=== PATIENT | male | born 1935 | race Caucasian/White ===

== ENCOUNTER 2024-01-30 10:56 | Inpatient (IN) | payer MEDICARE, OTHER ==
[~2024-01-30 10:56] MED LIST: Iopamidol 300 61% 100 ML VIAL FS ONE
[2024-01-30 12:42] LABS: #Basophils 0.03 10x3/uL (0.0-0.2); #Eosinphils 0.41 10x3/uL (0.0-0.5); #Monocytes 0.69 10x3/uL (0.0-1.1); #Neutrophils 3.86 10x3/uL (1.5-8.4); %Basophils 0.5 % (0.0-2.0); %Eosinophils 6.3 % (0.0-6.0); %Lymphocytes 22.4 % (18.0-47.0); %Monocytes 10.7 % (0.0-10.0); %Neutrophils 59.8 % (40.0-75.0); Hematocrit 41.3 % (38.8-50.0); Hemoglobin 13.1 g/dL (13.5-17.5); Mean Corpuscular HGB CONC 31.7 g/dL (32.0-36.0); Mean Corpuscular Hemoglobin 30.1 pg (27.0-33.0); Mean Corpuscular Volume 94.9 fL (81.2-95.1); Mean Platelet Volume 9.7 fL (7.4-10.4); Platelet Count 219 10x3/uL (150-450); RBC Distribution Width 13.2 % (11.5-14.5); Red Blood Cell (RBC) Count 4.35 10x6/uL (4.32-5.72); White Blood Cell (WBC) Count 6.5 10x3/uL (3.5-10.5)
[2024-01-30 12:53] LABS: PTT 34.7 sec (22.0-33.0); Prothrombin Time 10.7 sec (9.5-12.1)
[2024-01-30 12:58] LABS: Anion Gap 13 mmol/L (10-20); BUN (Urea Nitrogen) 10 mg/dL (8.4-25.7); Calc. Creatinine Clearance 71 mL/min (70-130); Carbon Dioxide 26 mmol/L (23-31); Chloride 103 mmol/L (98-107); Estimated GFR 85; Glucose 90 mg/dL (83-110); Magnesium 2.1 mg/dL (1.6-2.6); Potassium 4.1 mmol/L (3.5-5.1); Sodium 138 mmol/L (136-145)
[2024-01-30] MEDS ORDERED: Heparin 10,000 UNITS/ 10 ML VIAL ONE (13:33)
[2024-01-30] MEDS ORDERED: Nitroglycerin 50 MG/250 ML BOT 250 ML ONE (13:33)
[2024-01-30] MEDS ORDERED: Lidocaine 1% (PF) 30 ML VIAL ONE (13:33)
[2024-01-30] MEDS ORDERED: Verapamil 5 MG/2 ML VIAL ONE (13:33)
[2024-01-30] MEDS ORDERED: Atropine Sulfate 1 mg/1 ml Vial ONE (14:39)
[2024-01-30] MEDS ORDERED: PHENYLEPHRINE-NS 100 MCG/ML 10 ML SYRINGE ONE (14:39)
[2024-01-30] MEDS ORDERED: Adenosine 6 mg (2 mL) VIAL ONE (14:52)
[2024-01-30] MEDS ORDERED: Morphine 4 MG/ML VIAL ONE (14:58)
[2024-01-30] MEDS ORDERED: Ondansetron PF 4 MG/2 ML Vial ONE (15:03)
[2024-01-30] MEDS ORDERED: Clopidogrel Bisulfate 300 MG TAB ONE (15:35)
[2024-01-30] MEDS ORDERED: Morphine 2 MG/ML VIAL SLOW IVP PRN (16:01)
[2024-01-30] MEDS ORDERED: Nitroglycerin 2% Ointment 1 INCH/1 GM Packet ONE (16:15)
[2024-01-30] MEDS ORDERED: Nitroglycerin 0.4 MG TAB (25 Tab Bottle) ONE (16:40)
[2024-01-30] MEDS: Nitroglycerin 0.4 MG TAB (25 Tab Bottle) SL PRN (20:42)
[2024-01-30] MEDS: Atorvastatin Calcium 40 MG TAB PO SCH (20:51)
[2024-01-30] MEDS: traZODone HCl 50 MG TAB PO SCH (20:52)
[2024-01-30] MEDS: Melatonin 3 MG TAB PO SCH (20:52)
[2024-01-30] MEDS ORDERED: Atorvastatin Calcium 40 MG TAB PO SCH ×2 (21:00)
[2024-01-30] MEDS: Sodium Chloride 0.9% 1,000 ML IV SCH (21:09)
[2024-01-31 04:03] LABS: #Basophils 0.03 10x3/uL (0.0-0.2); #Eosinphils 0.21 10x3/uL (0.0-0.5); #Monocytes 0.83 10x3/uL (0.0-1.1); %Basophils 0.5 % (0.0-2.0); %Eosinophils 3.2 % (0.0-6.0); %Monocytes 12.5 % (0.0-10.0); %Neutrophils 64.6 % (40.0-75.0); Hematocrit 36.8 % (38.8-50.0); Hemoglobin 11.8 g/dL (13.5-17.5); Mean Corpuscular HGB CONC 32.1 g/dL (32.0-36.0); Mean Corpuscular Hemoglobin 30.3 pg (27.0-33.0); Mean Corpuscular Volume 94.4 fL (81.2-95.1); Mean Platelet Volume 9.9 fL (7.4-10.4); Platelet Count 196 10x3/uL (150-450); RBC Distribution Width 13.2 % (11.5-14.5); White Blood Cell (WBC) Count 6.6 10x3/uL (3.5-10.5)
[2024-01-31 04:14] LABS: ALT (SGPT) 47 U/L (8-55); AST (SGOT) 152 U/L (5-34); Albumin 2.8 g/dL (3.4-4.8); Alkaline Phosphatase 159 U/L (40-110); Anion Gap 13 mmol/L (10-20); BUN (Urea Nitrogen) 10 mg/dL (8.4-25.7); Bilirubin, Total 0.8 mg/dL (0.2-1.2); Calc. Creatinine Clearance 75 mL/min (70-130); Carbon Dioxide 22 mmol/L (23-31); Chloride 108 mmol/L (98-107); Estimated GFR 86; Globulin 2.5 g/dL (2.4-3.5); Glucose 92 mg/dL (83-110); Potassium 3.7 mmol/L (3.5-5.1); Protein, Total 5.3 g/dL (5.8-8.1); Sodium 139 mmol/L (136-145)
[2024-01-31] MEDS: Acetaminophen 325 MG TAB PO PRN (04:16)
[2024-01-31] MEDS: Ondansetron PF 4 MG/2 ML Vial IVP PRN (09:00)
[2024-01-31] MEDS ORDERED: VITAMIN E MIXED 1000 UNIT PO SCH (09:00)
[2024-01-31] MEDS: Clopidogrel Bisulfate 75 MG TAB PO SCH (09:56)
[2024-01-31] MEDS: Aspirin Chewable 81 MG TAB PO SCH ×2 (09:56→09:58)
[2024-01-31] MEDS: Allopurinol 100 MG TAB PO SCH (09:56)
[2024-01-31] MEDS: Losartan 25 MG TAB PO SCH (09:57)
[2024-01-31] MEDS: Multivitamin W/ Minerals 1 TAB PO SCH (09:57)
[2024-01-31] MEDS: Cholecalciferol 1,000 UNITS (25 MCG) TAB PO SCH (09:57)
[2024-01-31] MEDS: Potassium Chloride 20 MEQ TAB PO SCH ×2 (11:09→15:09)
[2024-01-31] MEDS: Pepto Bismol Chew TAB PO SCH (12:25)
[2024-01-31] MEDS: Nitroglycerin 2% Ointment 1 INCH/1 GM Packet TOP SCH ×2 (13:22→21:35)
[2024-01-31] MEDS ORDERED: Nitroglycerin 2% Ointment 1 INCH/1 GM Packet TOP SCH (21:00)
[2024-01-31] MEDS: Enoxaparin 30 MG (0.3 mL) SYRINGE SC SCH (21:40)
[2024-02-01] MEDS ORDERED: UDCUP PO SCH (08:15)
[2024-02-01] MEDS ORDERED: BISMUTH SUBSALICYLATE 524 MG/30 ML PO SCH (08:15)
[2024-02-01] MEDS: Pepto Bismol Chew TAB PO SCH (09:16)
[2024-02-01] MEDS: Famotidine 20 MG TAB PO SCH ×2 (10:45→21:27)
[2024-02-01] MEDS: Isosorbide Mononitrate 30 MG ER.TAB PO SCH (10:46)
[2024-02-01 11:01] LABS: Hematocrit 39.5 % (38.8-50.0); Hemoglobin 12.7 g/dL (13.5-17.5); Mean Corpuscular HGB CONC 32.2 g/dL (32.0-36.0); Mean Corpuscular Hemoglobin 30.5 pg (27.0-33.0); Mean Corpuscular Volume 94.7 fL (81.2-95.1); Mean Platelet Volume 9.8 fL (7.4-10.4); Platelet Count 217 10x3/uL (150-450); RBC Distribution Width 13.2 % (11.5-14.5); Red Blood Cell (RBC) Count 4.17 10x6/uL (4.32-5.72); White Blood Cell (WBC) Count 8.2 10x3/uL (3.5-10.5)
[2024-02-01 11:13] LABS: Anion Gap 12 mmol/L (10-20); BUN (Urea Nitrogen) 9 mg/dL (8.4-25.7); Calc. Creatinine Clearance 74 mL/min (70-130); Calcium 9.2 mg/dL (7.8-10.44); Carbon Dioxide 24 mmol/L (23-31); Chloride 106 mmol/L (98-107); Estimated GFR 86; Glucose 125 mg/dL (83-110); Potassium 4.4 mmol/L (3.5-5.1); Sodium 138 mmol/L (136-145)
[2024-02-01 14:02] LABS: ALT (SGPT) 43 U/L (8-55); AST (SGOT) 130 U/L (5-34); Alkaline Phosphatase 152 U/L (40-110); Bilirubin, Direct 0.4 mg/dL (0.1-0.3); Bilirubin, Total 0.9 mg/dL (0.2-1.2); Protein, Total 5.9 g/dL (5.8-8.1)
[2024-02-02 04:21] LABS: ALT (SGPT) 36 U/L (8-55); AST (SGOT) 85 U/L (5-34); Albumin 2.7 g/dL (3.4-4.8); Alkaline Phosphatase 140 U/L (40-110); Anion Gap 13 mmol/L (10-20); BUN (Urea Nitrogen) 11 mg/dL (8.4-25.7); Bilirubin, Total 0.8 mg/dL (0.2-1.2); Calc. Creatinine Clearance 75 mL/min (70-130); Calcium 8.7 mg/dL (7.8-10.44); Carbon Dioxide 22 mmol/L (23-31); Chloride 106 mmol/L (98-107); Estimated GFR 86; Globulin 2.9 g/dL (2.4-3.5); Glucose 86 mg/dL (83-110); Potassium 3.8 mmol/L (3.5-5.1); Protein, Total 5.6 g/dL (5.8-8.1); Sodium 137 mmol/L (136-145)
[2024-02-02] MEDS: Isosorbide Mononitrate 30 MG ER.TAB PO SCH (11:31)
[2024-02-02] MEDS: Potassium Chloride 20 MEQ TAB PO SCH (12:00)
[2024-02-03] MEDS: Metoprolol Tartrate 5 MG (5 mL) VIAL IVP SCH (02:57)
[2024-02-03] MEDS: Amiodarone 150 MG in Dextrose 5% in Water 100 ML IVPB SCH (03:33)
[2024-02-03] MEDS: Amiodarone In Dextrose 360 MG in Premix 1 BAG IVPB SCH (03:54)
[2024-02-03 04:23] LABS: ALT (SGPT) 43 U/L (8-55); AST (SGOT) 71 U/L (5-34); Albumin 2.8 g/dL (3.4-4.8); Alkaline Phosphatase 189 U/L (40-110); Bilirubin, Direct 0.4 mg/dL (0.1-0.3); Bilirubin, Total 0.8 mg/dL (0.2-1.2); Protein, Total 6.1 g/dL (5.8-8.1)
[2024-02-03 04:24] LABS: ALT (SGPT) 46 U/L (8-55); AST (SGOT) 76 U/L (5-34); Alkaline Phosphatase 203 U/L (40-110); Anion Gap 15 mmol/L (10-20); BUN (Urea Nitrogen) 12 mg/dL (8.4-25.7); Bilirubin, Total 0.9 mg/dL (0.2-1.2); Calc. Creatinine Clearance 72 mL/min (70-130); Calcium 9.3 mg/dL (7.8-10.44); Carbon Dioxide 21 mmol/L (23-31); Chloride 104 mmol/L (98-107); Estimated GFR 85; Globulin 3.6 g/dL (2.4-3.5); Glucose 135 mg/dL (83-110); Potassium 3.8 mmol/L (3.5-5.1); Protein, Total 6.6 g/dL (5.8-8.1); Sodium 136 mmol/L (136-145)
[2024-02-03] MEDS: Amiodarone 200 MG TAB PO SCH ×2 (10:57→22:20)
[2024-02-04] MEDS ORDERED: Metoprolol Tartrate 5 MG (5 mL) VIAL IVP PRN (08:12)
[2024-02-04] MEDS: Amiodarone 200 MG TAB PO SCH (09:15)
[2024-02-04] MEDS: Metoprolol Tartrate 5 MG (5 mL) VIAL IVP SCH (09:19)
[2024-02-05 05:06] LABS: Bilirubin Neg (Negative); Blood, Urine Negative (Negative); Clarity Clear (Clear); Glucose, Urine (Dipstick) Normal (Negative); Ketone, Urine Negative (Negative); Leukocyte 25 (Negative); Nitrite Negative (Negative); Protein, Urine (Dipstick) 30 mg/dl (Neg-Trace); Specific Gravity, Urine 1.025 (1.005-1.030)
[2024-02-05 05:20] LABS: CAUTI Indications for Culture Dysuria,urgency,freq; RBC/HPF 0-3 HPF (0-3)
[2024-02-05 05:21] LABS: Bacteria/HPF Rare-Few HPF (None Seen); Mucous/LPF 2+ LPF (<2+)
[2024-02-05 05:23] LABS: Urine Culture Reflex No No
[2024-02-05] MEDS: Potassium Chloride 20 MEQ TAB PO SCH (11:58)
[2024-02-05 15:29] LABS: Anion Gap 11 mmol/L (10-20); BUN (Urea Nitrogen) 15 mg/dL (8.4-25.7); Calc. Creatinine Clearance 0 mL/min (70-130); Calcium 8.7 mg/dL (7.8-10.44); Carbon Dioxide 26 mmol/L (23-31); Chloride 105 mmol/L (98-107); Estimated GFR 83; Glucose 120 mg/dL (83-110); Potassium 4.2 mmol/L (3.5-5.1); Sodium 138 mmol/L (136-145)
[2024-02-06 12:31] VITALS: BP 122/67; TEMP 98.2
== END 2024-02-06 16:46 | disposition home or self-care (01) | DRG 322 ==
LOC: CSHCCL 10:56 → CSHTELE 19:12 → OBSVTOIN 02-01 14:22
PROVIDERS: ADMIT Specialist; ATTEND Specialist
PROC: 027135Z Dilation of Coronary Artery, Two Arteries with Two Drug-eluting Intraluminal Devices, Percutaneous Approach (ICD-10-PCS; principal; 2024-02-01)
PROC: 4A023N7 Measurement of Cardiac Sampling and Pressure, Left Heart, Percutaneous Approach (ICD-10-PCS; 2024-02-01)
PROC: B2111ZZ Fluoroscopy of Multiple Coronary Arteries using Low Osmolar Contrast (ICD-10-PCS; 2024-02-01)
PROC: B2151ZZ Fluoroscopy of Left Heart using Low Osmolar Contrast (ICD-10-PCS; 2024-02-01)
DX: I25.118 Atherosclerotic heart disease of native coronary artery with other forms of angina pectoris (principal); I50.32 Chronic diastolic (congestive) heart failure; E78.5 Hyperlipidemia, unspecified; I73.9 Peripheral vascular disease, unspecified; K21.9 Gastro-esophageal reflux disease without esophagitis; E55.9 Vitamin D deficiency, unspecified; I11.0 Hypertensive heart disease with heart failure; I70.1 Atherosclerosis of renal artery; M10.9 Gout, unspecified; G89.29 Other chronic pain; Z88.0 Allergy status to penicillin; Z88.8 Allergy status to other drugs, medicaments and biological substances
CPT/HCPCS: 36415; 36556; 80048; 80053; 80076; 81001; 83735; 84132; 84443; 85025; 85027; 85347; 85610; 85730; 92928; 92978; 92979; 93005; 93010; 93458; 94760; 94762; 96372; 96374; 96376; 99152; 99153; C1725; C1753; C1760; C1769; C1874; C1876; C1887; C1894; C9600; G0378; J0153; J0282; J0283; J0461; J1644; J1650; J2001; J2272; J2405; J7030; J7070; Q9967